=== PATIENT | female | born 1965 | race Two or more races ===

== ENCOUNTER → 2017-05-28 | Day surgery (SDC) | payer OTHER, MEDICAID ==
[2017-05-26 14:48] LABS: Basophils # (auto) 0 uL; Basophils % (auto) 0.6 % (0.0-2.0); Eosinophils # (auto) 0.1 uL; Hematocrit 37.7 % (36.0-46.0); Hemoglobin 12.6 g/dL (12.2-16.2); Lymphocytes # (auto) 1.1 uL; Lymphocytes % (auto) 14.6 % (10.0-50.0); Mean Corpuscular Hemoglobin 32.3 pg (28.0-32.0); Mean Corpuscular Hgb Conc. 33.5 g/dL (32.0-36.0); Mean Corpuscular Volume 96.6 fL (80.0-100.0); Mean Platelet Volume 9.1 fL (6.9-10.8); Monocytes # (auto) 0.4 uL; Monocytes % (auto) 5.4 % (0.0-12.0); Neutrophils # (auto) 5.8 uL; Neutrophils % (auto) 78.4 % (37.0-80.0); Platelet Count (auto) 188 10^3/uL (140-450); White Blood Cell 7.4 10^3/uL (4.4-10.8)
[2017-05-26 14:51] LABS: Urine Bilirubin Negative (Negative); Urine Blood Negative /uL (Negative); Urine Color Orange (Yellow); Urine Glucose Normal (Normal); Urine Ketone Negative (Negative); Urine Mucus FEW (None Seen); Urine Nitrite Negative (Negative); Urine RBC 6 /hpf (0 - 4); Urine Squamous Epithelial Cell FEW /hpf (<5); Urine Urobilinogen Normal (Negative); Urine pH 7.5 (5.0-8.0)
[2017-05-26 15:03] LABS: INR 0.86 (0.9-1.15); Partial Thromboplastin Time 23.5 sec (22.64-33.71); Prothrombin Time 9.4 sec (9.37-12.3)
[2017-05-26 15:11] LABS: BUN/Creatinine Ratio 11.4; Calcium 8.5 mg/dL (8.5-10.1); Potassium 3.6 mmol/L (3.5-5.1)
[~2017-05-28] VITALS: Ht 162.6 cm; Wt 79.4 kg
[~2017-05-28] MED LIST: ASPI81TA27 PO; EZET10TA2 PO; HYDROmorphone HCL 2 MG/ML VL ONE; IBUP600T27 PO; MIDAZOLAM HCL 1MG/1ML-2 ML VIAL ONE; ONDANSETRON HCL 4 MG/2 ML VIAL ONE; PROPOFOL 10 MG/ML 20 ML IV ONE; ROCURONIUM 10MG/ML 10ML VIAL IV ONE; ceFAZolin 1GM/50ML 50 ML IV ONE; fentaNYL CITRATE 100 MCG/2 ML VL ONE
[2017-05-28 08:52] VITALS: BP 144/78
== END | disposition home or self-care (01) ==
LOC: SUR 08:45
PROVIDERS: ATTEND Urology
DX: D49.512 Neoplasm of unspecified behavior of left kidney (principal); Z53.8 Procedure and treatment not carried out for other reasons; Z91.02 Food additives allergy status; Z98.51 Tubal ligation status; C64.9 Malignant neoplasm of unspecified kidney, except renal pelvis; E66.9 Obesity, unspecified; Z68.30 Body mass index [BMI] 30.0-30.9, adult; D69.6 Thrombocytopenia, unspecified
CPT/HCPCS: 36415; 80048; 81001; 85025; 85610; 85730; 86850; 86900; 86901; 87086; J0690; J1170; J3010; J2250; J2405; J2704

== ENCOUNTER 2017-06-24 06:13 | Inpatient (IN) | payer OTHER, MEDICAID ==
[2017-06-23 12:39] LABS: Basophils # (auto) 0.1 uL; Basophils % (auto) 1.1 % (0.0-2.0); Eosinophils # (auto) 0.1 uL; Eosinophils % (auto) 1.6 % (0.0-7.0); Hematocrit 40.8 % (36.0-46.0); Hemoglobin 13.6 g/dL (12.2-16.2); Lymphocytes # (auto) 1.2 uL; Lymphocytes % (auto) 21.5 % (10.0-50.0); Mean Corpuscular Hemoglobin 32.1 pg (28.0-32.0); Mean Corpuscular Hgb Conc. 33.4 g/dL (32.0-36.0); Mean Corpuscular Volume 96.1 fL (80.0-100.0); Monocytes # (auto) 0.5 uL; Neutrophils # (auto) 3.9 uL; Neutrophils % (auto) 66.8 % (37.0-80.0); Nucleated Red Blood Cells % 0.1 %; Platelet Count (auto) 219 10^3/uL (140-450); Red Blood Cells 4.25 10^6/uL (4.0-5.20); Red Cell Distribution Width 14.4 % (11.8-14.3); White Blood Cell 5.8 10^3/uL (4.4-10.8)
[2017-06-23 12:47] LABS: Urine Bacteria NONE SEEN /hpf (None Seen); Urine Blood Negative /uL (Negative); Urine Specific Gravity 1.006 (1.001-1.035); Urine WBC 7 /hpf (0 - 5)
[2017-06-23 12:52] LABS: INR 0.93 (0.9-1.15); Partial Thromboplastin Time 23.7 sec (22.64-33.71); Prothrombin Time 10.1 sec (9.37-12.3)
[2017-06-23 13:08] LABS: BUN/Creatinine Ratio 13.4; Calcium 9.1 mg/dL (8.5-10.1); Potassium 3.7 mmol/L (3.5-5.1)
[~2017-06-24] VITALS: Ht 162.6 cm; Wt 90.3 kg
[~2017-06-24 06:13] MED LIST changes: -EZET10TA2 PO; +EZET10TA6 PO; -HYDROmorphone HCL 2 MG/ML VL ONE; -MIDAZOLAM HCL 1MG/1ML-2 ML VIAL ONE; -ONDANSETRON HCL 4 MG/2 ML VIAL ONE; -PROPOFOL 10 MG/ML 20 ML IV ONE; -ROCURONIUM 10MG/ML 10ML VIAL IV ONE; -ceFAZolin 1GM/50ML 50 ML IV ONE; -fentaNYL CITRATE 100 MCG/2 ML VL ONE
[2017-06-24] MEDS ORDERED: ceFOXitin 2GM/100ML 100 ML IV ONE (07:00)
[2017-06-24] MEDS ORDERED: fentaNYL CITRATE 5 ML ONE (07:23)
[2017-06-24] MEDS ORDERED: MIDAZOLAM HCL 1MG/1ML-2 ML VIAL ONE (07:23)
[2017-06-24] MEDS ORDERED: MEPERIDINE HCL (50 MG/ML) 1 ML VIAL ONE (07:23)
[2017-06-24] MEDS ORDERED: fentaNYL CITRATE 100 MCG/2 ML VL ONE (07:23)
[2017-06-24] MEDS ORDERED: ROCURONIUM 10MG/ML 10ML VIAL IV ONE (07:40)
[2017-06-24] MEDS ORDERED: DEXAMETHASONE SOD PHOS 10MG/1ML VIAL INJ ONE (07:40)
[2017-06-24] MEDS ORDERED: PROPOFOL 10 MG/ML 20 ML IV ONE (07:40)
[2017-06-24] MEDS ORDERED: PHENYLEPHRINE HCL 10 MG/ML VL ONE (08:08)
[2017-06-24] MEDS: D5W/SOD CHL 0.45% 1,000 ML IV SCH ×2 (09:10→15:37)
[2017-06-24] MEDS ORDERED: diphenhdrAMINE HCL 50 MG/1 ML VL IV PRN (09:15)
[2017-06-24] MEDS ORDERED: LABETALOL HCL 5 MG/ML 4ML SYRINGE IV PRN (09:15)
[2017-06-24] MEDS ORDERED: MIDAZOLAM HCL 1MG/1ML-2 ML VIAL IV PRN (09:15)
[2017-06-24] MEDS ORDERED: ONDANSETRON HCL 4 MG/2 ML VIAL IV ONE (09:15)
[2017-06-24] MEDS ORDERED: KETOROLAC TROMETH 30 MG/ML 1ML VIAL IV ONE (09:15)
[2017-06-24] MEDS ORDERED: ePHEDrine SULFATE 50 MG/ML AMP IV PRN (09:15)
[2017-06-24] MEDS ORDERED: CEFOXITIN SODIUM 1 GM in D5W 5% 50 ML IV SCH (09:15)
[2017-06-24] MEDS ORDERED: HYDROmorphone HCL 2 MG/ML VL IV PRN (09:15)
[2017-06-24] MEDS ORDERED: GLYCOPYRROLATE 0.2 MG/ML 1ML VIAL ONE (09:42)
[2017-06-24] MEDS ORDERED: NEOSTIGMINE 1 MG/ML INJ (10mg/10ML VIAL) ONE (09:42)
[2017-06-24] MEDS ORDERED: MORPHINE SULF INJ 2 MG/ML SYRINGE 1ML IV ONE (10:00)
[2017-06-24 10:06] LABS: BUN/Creatinine Ratio 8.2; Calcium 8.3 mg/dL (8.5-10.1); Potassium 3.8 mmol/L (3.5-5.1)
[2017-06-24 14:15] VITALS: BP 145/63
[2017-06-24] MEDS: HYDROmorphone HCL 2 MG/ML VL IV PRN ×3 (15:34→23:05)
[2017-06-24] MEDS: ONDANSETRON HCL 4 MG/2 ML VIAL IV PRN ×2 (18:50→22:57)
[2017-06-24 22:00] VITALS: BP 129/68
[2017-06-24] MEDS: CEFOXITIN SODIUM 1 GM in D5W 5% 50 ML IV SCH (22:56)
[2017-06-25] MEDS: D5W/SOD CHL 0.45% 1,000 ML IV SCH ×3 (01:10→18:04)
[2017-06-25] MEDS: ONDANSETRON HCL 4 MG/2 ML VIAL IV PRN ×3 (02:55→10:59)
[2017-06-25] MEDS: HYDROmorphone HCL 2 MG/ML VL IV PRN ×2 (02:55→06:27)
[2017-06-25 05:59] VITALS: BP 120/64
[2017-06-25] MEDS: CEFOXITIN SODIUM 1 GM in D5W 5% 50 ML IV SCH (06:12)
[2017-06-25 09:00] VITALS: BP 111/57
[2017-06-25 11:23] VITALS: BP 111/57
[2017-06-25 13:04] VITALS: BP 142/76
[2017-06-25] MEDS: PROMETHAZINE HCL 25 MG/ML 1ML IV PRN ×2 (13:34→21:16)
[2017-06-25 17:04] VITALS: BP 144/79
[2017-06-25] MEDS: ACETAMINOPHEN/CODEINE#3 (300/30mg) TAB PO PRN (21:17)
[2017-06-25 22:22] VITALS: BP 144/73
[2017-06-26] MEDS: PROMETHAZINE HCL 25 MG/ML 1ML IV PRN ×2 (02:53→09:16)
[2017-06-26] MEDS: D5W/SOD CHL 0.45% 1,000 ML IV SCH ×2 (02:53→09:45)
[2017-06-26] MEDS: ACETAMINOPHEN/CODEINE#3 (300/30mg) TAB PO PRN ×2 (02:54→07:04)
[2017-06-26 05:04] VITALS: BP 143/74
[2017-06-26] MEDS ORDERED: MILK OF MAGNESIA 30ML SUSP PO ONE (08:30)
[2017-06-26 09:00] VITALS: BP 160/89
== END 2017-06-26 09:40 | disposition home or self-care (01) | DRG 658 ==
LOC: SUR 06:13 → TELE-CENTR 06:14
PROVIDERS: ADMIT Urology; ATTEND Urology
PROC: 07TC4ZZ Resection of Pelvis Lymphatic, Percutaneous Endoscopic Approach (ICD-10-PCS; 2017-06-24)
PROC: 0TT14ZZ Resection of Left Kidney, Percutaneous Endoscopic Approach (ICD-10-PCS; principal; 2017-06-24 07:24)
DX: D41.02 Neoplasm of uncertain behavior of left kidney (principal); Z79.82 Long term (current) use of aspirin; Z98.51 Tubal ligation status; Z79.899 Other long term (current) drug therapy
CPT/HCPCS: 36415; 80048; 81001; 85025; 85610; 85730; 86850; 86900; 86901; 87086; 93005; J0694; J1100; J2250; J2405; J2704; J7060

== ENCOUNTER 2019-03-30 12:14 | Day surgery (SDC) | payer MEDICAID ==
[2019-03-28 12:01] LABS: Basophils # (auto) 0 uL; Basophils % (auto) 0.7 % (0.0-2.0); Eosinophils # (auto) 0.1 uL; Eosinophils % (auto) 3.2 % (0.0-7.0); Hematocrit 37.8 % (36.0-46.0); Hemoglobin 12.7 g/dL (12.2-16.2); Lymphocytes # (auto) 1.3 uL; Lymphocytes % (auto) 27.6 % (10.0-50.0); Mean Corpuscular Hemoglobin 31.8 pg (28.0-32.0); Mean Corpuscular Hgb Conc. 33.7 g/dL (32.0-36.0); Mean Corpuscular Volume 94.4 fL (80.0-100.0); Monocytes # (auto) 0.5 uL; Monocytes % (auto) 10.6 % (0.0-12.0); Neutrophils # (auto) 2.7 uL; Neutrophils % (auto) 57.9 % (37.0-80.0); Nucleated Red Blood Cells % 0.1 %; Platelet Count (auto) 170 10^3/uL (140-450); Red Cell Distribution Width 14.5 % (11.8-14.3); White Blood Cell 4.7 10^3/uL (4.4-10.8)
[2019-03-28 12:06] LABS: Urine Bacteria NONE SEEN /hpf (None Seen); Urine Blood Negative /uL (Negative); Urine Specific Gravity 1.005 (1.001-1.035); Urine WBC 1 /hpf (0 - 5)
[2019-03-28 12:16] LABS: INR < 0.93 (0.9-1.15); Partial Thromboplastin Time 23.5 sec (23.64-32.05)
[2019-03-28 12:40] LABS: Potassium 4.4 mmol/L (3.5-5.1)
[2019-03-28 12:58] LABS: Albumin 3.6 g/dL (3.4-5.0); BUN/Creatinine Ratio 13.1; Bilirubin, Total 0.9 mg/dL (0.2-1.0); Calcium 8.5 mg/dL (8.5-10.1); Total Protein 7.6 g/dL (6.4-8.2)
[~2019-03-30] VITALS: Ht 160 cm; Wt 95.3 kg
[~2019-03-30 12:14] MED LIST changes: -ASPI81TA27 PO; +EZET10TA22 PO; -EZET10TA6 PO; -IBUP600T27 PO; +LORA-622 PO
[2019-03-30] MEDS ORDERED: LIDOCAINE 1% HCL (LOCAL ANESTH.) INJ 20ML MDV ONE (13:05)
[2019-03-30] MEDS ORDERED: BUPIVACAINE 0.5% P/F INJ 10 ML VIAL ONE (13:05)
[2019-03-30] MEDS ORDERED: SUCCINYLCHOLINE CHLORIDE 20 MG/ML 10ML VIAL IV ONE (13:50)
[2019-03-30] MEDS ORDERED: LIDOCAINE 1% (LOCAL ANESTH.) PF 5ml SDV ONE (13:50)
[2019-03-30] MEDS ORDERED: MIDAZOLAM HCL 1MG/1ML-2 ML VIAL ONE (13:54)
[2019-03-30] MEDS ORDERED: METOCLOPRAMIDE HCL 5MG/ml INJ 2ml VIAL ONE (13:54)
[2019-03-30] MEDS ORDERED: ROCURONIUM 10MG/ML 10ML VIAL IV ONE (13:55)
[2019-03-30] MEDS ORDERED: ETOMIDATE (2MG/ML) 20ML VIAL IV ONE (13:55)
[2019-03-30] MEDS ORDERED: NALOXONE HCL 0.4 MG/ML VIAL IV PRN (14:15)
[2019-03-30] MEDS ORDERED: ONDANSETRON HCL 4 MG/2 ML VIAL IV PRN (14:15)
[2019-03-30] MEDS ORDERED: HYDROmorphone HCL 2 MG/ML VL IV PRN ×2 (14:15)
[2019-03-30] MEDS ORDERED: DexAMETHasone SOD PHOS 10MG/1ML VIAL INJ ONE (14:20)
[2019-03-30] MEDS ORDERED: fentaNYL CITRATE 100 MCG/2 ML VL ONE (14:20)
[2019-03-30] MEDS ORDERED: HYDROmorphone HCL 2 MG/ML VL ONE (17:32)
[2019-03-30 17:45] VITALS: BP 130/71
[2019-03-30] MEDS ORDERED: PROMETHAZINE HCL 25 MG/ML 1ML ONE (17:45)
== END 2019-03-30 18:00 | disposition home or self-care (01) ==
LOC: SUR 12:14
PROVIDERS: ATTEND Podiatrist
DX: M20.11 Hallux valgus (acquired), right foot (principal); M21.41 Flat foot [pes planus] (acquired), right foot; M06.871 Other specified rheumatoid arthritis, right ankle and foot; M19.90 Unspecified osteoarthritis, unspecified site; K21.9 Gastro-esophageal reflux disease without esophagitis; E66.9 Obesity, unspecified; Z68.37 Body mass index [BMI] 37.0-37.9, adult; Z88.5 Allergy status to narcotic agent; Z79.899 Other long term (current) drug therapy; Z90.5 Acquired absence of kidney; Z98.890 Other specified postprocedural states; Z91.018 Allergy to other foods; Z98.891 History of uterine scar from previous surgery
CPT/HCPCS: 28111; 28112; 28113; 28750; 36415; 73620; 80053; 81001; 85025; 85610; 85730; 93005; J0330; J1100; J1170; J2001; J2250; J2405; J2550; J2765; J3010; J3490; 76001

== ENCOUNTER → 2019-04-01 | Emergency (ER) | payer MEDICAID | END | disposition left against medical advice (07) | LOC: ER 19:49 | DX: M79.673 Pain in unspecified foot (principal); Z53.21 Procedure and treatment not carried out due to patient leaving prior to being seen by health care provider ==